=== PATIENT | male | born 1970 | race African-American/Black ===

== ENCOUNTER → 2019-09-22 | Outpatient (CLI) | payer MEDICAID | END | disposition home or self-care (01) | LOC: CVU 08:32 | PROVIDERS: ATTEND Surgery | DX: I70.212 Atherosclerosis of native arteries of extremities with intermittent claudication, left leg (principal); I10 Essential (primary) hypertension; Z89.511 Acquired absence of right leg below knee; Z89.611 Acquired absence of right leg above knee | CPT/HCPCS: 93925; 93971 ==